=== PATIENT | male | born 1995 | race Caucasian/White ===

== ENCOUNTER 2018-05-22 11:08 | Emergency (ER) | payer OTHER, SELFPAY ==
[2018-05-22 11:17] VITALS: BP 132/81; PULSE 88; RESP 16; TEMP 36.6; O2SAT 99
--- NOTE | 2018-05-22 11:19 | W.ED.GENAD ---
Discharge Plan Disposition Patient Disposition: HOME Condition: Stable Discharge Details Chief Complaint: Laceration Clinical Impression: Laceration of right little finger Primary Care Provider: Nava Patel ED Provider: Salbador Chi Discharge Instructions Instructions: Finger Laceration (ED) Additional Instructions: Keep the wound clean and covered. If redness spreads down the hand or you have yellow/white discharge from the wound return to the emergency department Medical Decision Making 23 yo male comes in with right pinky laceration over lateral portion of the pinky. It is about 2cm in length and v shaped, occured while washing dishes yesterday. Has full rom of the finger and intact sensation so doubt tendon or nerve injury. Wound is superficial. Given lenght of time with injury do not feel closure with sutures indicated. Will up date tetatnus status and return precautions for infection given Differential Diagnosis lac, abrasion HPI General Mode of arrival: ambulatory. Date/Time Provider Initiated Documentation: 05/22/18 11:19. Limitations to Documentation: no limitations. Information obtained by: patient. History of Present Illness 23 year old M presents to the emergency department with the chief complaint of right pinky finger injury, described as mild, with intensity rated at 2. Quality is described as aching, and is localized to the right and upper extremity. Patient reports no radiation. Patient started experiencing this day(s) (1) and it has been constant. Rest improves symptom(s), Movement worsens symptoms . Patient notes no other symptoms.. Patient did receive the following treatments prior to arrival, none Related Data Allergies Allergy/AdvReac Type Severity Reaction Status Date / Time Penicillins Allergy Intermediate Hives Unverified 05/22/18 11:19 General Stated Complaint: Laceration KIA: 4 Review of Systems Review of Systems All systems reviewed & are unremarkable except as noted in HPI and below Constitutional Denies chills, Denies fever(s) and Denies weakness Cardiovascular Denies chest pain and Denies dyspnea Respiratory Denies dyspnea Gastrointestinal Denies abdominal pain, Denies nausea and Denies vomiting Genitourinary Denies dysuria Integumentary/Breasts Denies rash Neurologic Denies weakness Psychiatric Denies depression [facility] Medical History Acute appendicitis Nausea and vomiting Nonulcer dyspepsia Sleep apnea Surgical History Appendectomy (03/28/13) Social History Smoking/Tobacco Use Status: Current every day Exam Const General: no acute distress Orientation: alert HENMT Head: normal to inspection Ears: external ears normal General nose exam: external nose normal Mouth: moist mucous membranes Eyes General: appearance normal, both eyes and all related structures Neck Neck: normal visual inspection Resp Effort & Inspection: normal respiratory effort and able to speak in complete sentences Cardio Rate: regular rate Skin General skin exam: no rashes or lesions noted Neuro General: alert and oriented x3 Extrem General: full ROM and normal capillary refill Psych Mental Status: mental status grossly normal Course Vital Signs Temperature 36.6 C 05/22/18 11:17 Pulse 88 05/22/18 11:17 Respiratory Rate 16 05/22/18 11:17 Blood Pressure 132/81 05/22/18 11:17 Pulse Oximetry 99 05/22/18 11:17 Temperature 36.6 C 05/22/18 11:17 Temperature Source Skin 05/22/18 11:17 Pulse 88 05/22/18 11:17 Respiratory Rate 16 05/22/18 11:17 Blood Pressure 132/81 05/22/18 11:17 Pulse Oximetry 99 05/22/18 11:17 Oxygen Delivery Method Room Air 05/22/18 11:17 Oxygen Flow Rate 0 05/22/18 11:17 Pain Level 0 05/22/18 11:17
--- NOTE | 2018-05-22 11:25 | ED.GENADUL_ITS ---
Discharge Plan Disposition Patient Disposition: HOME Condition: Stable Discharge Details Chief Complaint: Laceration Clinical Impression: Laceration of right little finger Primary Care Provider: Nava Patel ED Provider: Salbador Chi Discharge Instructions Instructions: Finger Laceration (ED) Additional Instructions: Keep the wound clean and covered. If redness spreads down the hand or you have yellow/white discharge from the wound return to the emergency department Medical Decision Making 23 yo male comes in with right pinky laceration over lateral portion of the pinky. It is about 2cm in length and v shaped, occured while washing dishes yesterday. Has full rom of the finger and intact sensation so doubt tendon or nerve injury. Wound is superficial. Given lenght of time with injury do not feel closure with sutures indicated. Will up date tetatnus status and return precautions for infection given Differential Diagnosis lac, abrasion HPI General Mode of arrival: ambulatory . Date/Time Provider Initiated Documentation: 05/22/18 11:19 . Limitations to Documentation: no limitations . Information obtained by: patient . History of Present Illness 23 year old M presents to the emergency department with the chief complaint of right pinky finger injury, described as mild, with intensity rated at 2. Quality is described as aching, and is localized to the right and upper extremity. Patient reports no radiation. Patient started experiencing this day(s) (1) and it has been constant. Rest improves symptom(s), Movement worsens symptoms . Patient notes no other symptoms.. Patient did receive the following treatments prior to arrival, none Related Data Allergies Allergy/AdvReac Type Severity Reaction Status Date / Time Penicillins Allergy Intermediate Hives Unverified 05/22/18 11:19 General Stated Complaint: Laceration KIA: 4 Review of Systems Review of Systems All systems reviewed & are unremarkable except as noted in HPI and below Constitutional Denies chills, Denies fever(s) and Denies weakness Cardiovascular Denies chest pain and Denies dyspnea Respiratory Denies dyspnea Gastrointestinal Denies abdominal pain, Denies nausea and Denies vomiting Genitourinary Denies dysuria Integumentary/Breasts Denies rash Neurologic Denies weakness Psychiatric Denies depression [facility] Medical History Acute appendicitis Nausea and vomiting Nonulcer dyspepsia Sleep apnea Surgical History Appendectomy (03/28/13) Social History Smoking/Tobacco Use Status: Current every day Exam Const General: no acute distress Orientation: alert HENMT Head: normal to inspection Ears: external ears normal General nose exam: external nose normal Mouth: moist mucous membranes Eyes General: appearance normal, both eyes and all related structures Neck Neck: normal visual inspection Resp Effort & Inspection: normal respiratory effort and able to speak in complete sentences Cardio Rate: regular rate Skin General skin exam: no rashes or lesions noted Neuro General: alert and oriented x3 Extrem General: full ROM and normal capillary refill Psych Mental Status: mental status grossly normal Course Vital Signs Temperature 36.6 C 05/22/18 11:17 Pulse 88 05/22/18 11:17 Respiratory Rate 16 05/22/18 11:17 Blood Pressure 132/81 05/22/18 11:17 Pulse Oximetry 99 05/22/18 11:17 Temperature 36.6 C 05/22/18 11:17 Temperature Source Skin 05/22/18 11:17 Pulse 88 05/22/18 11:17 Respiratory Rate 16 05/22/18 11:17 Blood Pressure 132/81 05/22/18 11:17 Pulse Oximetry 99 05/22/18 11:17 Oxygen Delivery Method Room Air 05/22/18 11:17 Oxygen Flow Rate 0 05/22/18 11:17 Pain Level 0 05/22/18 11:17
== END 2018-05-22 11:52 | disposition home or self-care (01) ==
PROVIDERS: Emergency Provider Emergency Medicine; PCP Family Medicine
DX: S61.216A Laceration without foreign body of right little finger without damage to nail, initial encounter (principal); W25.XXXA Contact with sharp glass, initial encounter
CPT/HCPCS: 90471; 99282

== ENCOUNTER 2019-10-23 14:20 | Emergency (ER) | payer MEDICAID, SELFPAY ==
[2019-10-23 14:25] VITALS: BP 156/80; PULSE 79; RESP 15; TEMP 37.4; O2SAT 967
--- NOTE | 2019-10-23 14:35 | ED.GENADUL_ITS ---
Discharge Plan Disposition Patient Disposition: HOME Condition: Improving Discharge Details Chief Complaint: GenMedical Clinical Impression: Acute dehydration, Acute bronchitis Primary Care Provider: Wilbert Brown ED Provider: Jennifer Bragg Home Meds and New Rx's Prescriptions: New albuterol sulfate 2.5 mg /3 mL (0.083 %) solution for nebulization 2.5 mg IH Q4H PRN (Reason: shortness of breath or wheezing) Qty: 15 RF: 0 prednisone 20 mg tablet See Rx Instructions .ROUTE .COMPLEX Qty: 12 RF: 0 doxycycline hyclate 100 mg tablet 100 mg PO BID 7 Days Qty: 14 RF: 0 Discharge Instructions Instructions: Dehydration (ED), Acute Bronchitis (ED) Additional Instructions: Drink plenty of fluids and get plenty of rest. Take the steroids until finished. Use the albuterol inhaler and nebulizer as needed and directed. If you have no improvement of symptoms in the next 2 to 3 days, you can consider starting the antibiotics. Follow-up with your primary care doctor in 1 week. Return to the emergency department with any worsening or new concerning symptoms. 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 BP mildly hypertensive. Remainder vitals within normal limits. He appears flushed but nontoxic. He has rhonchi and wheezing throughout but with normal respiratory rate and oxygen saturation. Suspect most likely dehydration and likely acute bronchitis. IV, fluids and screening labs ordered on arrival. Will give a duoneb, PO steroids, and cxr and reassess. 1620 -- Labs reviewed and unremarkable. Troponin negative. Chest x-ray negative. pt reassessed -he is requesting to go home. States he feels much better. Lung exam reassessed and still with noted rhonchi, wheezing resolved. He declines any further neb treatment. We will send with a prescription for prednisone and albuterol solution as he has nebulizer machine at home. Also given prescription for antibiotics if symptoms do not improve or worsen as he is a smoker. Advised to follow up with the primary care doctor for re-evaluation. Usual and customary return precautions given prior to discharge. Medical Records Medical records reviewed: Yes I reviewed the patient's medical records. Imaging Data Radiologic Study: Radiologist's impression: XR PORTABLE CHEST AP CLINICAL HISTORY: cough, sob, r/o acute disease. TECHNIQUE: 2D digital imaging was performed. COMPARISON: CR LEFT SHOULDER COMPLETE from 03/30/2015 FINDINGS: LUNGS: Clear. No pleural abnormality seen. HEART: Normal. MEDIASTINUM: Normal. OTHER FINDINGS: None. IMPRESSION: No acute pulmonary findings. HPI General Mode of arrival: ambulatory . Date/Time Provider Initiated Documentation: 10/23/19 14:25 . Limitations to Documentation: no limitations . Information obtained by: patient . HPI Narrative: Patient is a 24-year-old male with a history of previous narcotic drug abuse on methadone who presents to the ED with complaint of feeling weak and dehydrated. Patient states he has been working on a hot roof for several hours throughout the day over the past 3 days. He states he has been trying to drink water but feels he is dehydrated. He also admits to a productive cough with yellow-green sputum and intermittent shortness of breath for the past 3 days. He denies any known fever, chest pain, abdominal pain, nausea, vomiting, diarrhea, urinary symptoms, headache or dizziness. Related Data Home Medications Medication Instructions Recorded Confirmed albuterol sulfate 2.5 mg IH Q4H PRN #15 ml 10/23/19 doxycycline hyclate 100 mg PO BID 7 Days #14 tab 10/23/19 prednisone See Rx Instructions .ROUTE 10/23/19 .COMPLEX #12 tab Previous Rx's Medication Instructions Recorded albuterol sulfate 2.5 mg IH Q4H PRN #15 ml 10/23/19 doxycycline hyclate 100 mg PO BID 7 Days #14 tab 10/23/19 prednisone See Rx Instructions .ROUTE 10/23/19 .COMPLEX #12 tab Allergies Allergy/AdvReac Type Severity Reaction Status Date / Time Penicillins Allergy Intermediate Hives Unverified 10/23/19 14:29 General Stated Complaint: GenMedical KIA: 3 Review of Systems All systems reviewed & are unremarkable except as noted in HPI and below Constitutional Constitutional: Reports as per HPI, Denies chills, Reports fatigue, Denies fever(s) and Reports weakness Eyes Eyes: Denies blurry vision ENT Ears, Nose, Mouth, and Throat: Denies dizziness, Denies sore throat and Denies throat swelling Cardiovascular Cardiovascular: Denies chest pain and Denies dyspnea Respiratory Respiratory: Reports cough and Denies dyspnea Gastrointestinal Gastrointestinal: Denies abdominal pain, Denies diarrhea and Denies vomiting Genitourinary Genitourinary: Denies hematuria and Denies dysuria Musculoskeletal Musculoskeletal: Denies back pain and Denies numbness Integumentary/Breasts Skin/Breast: Denies lesions and Denies rash Neurologic Neurologic: Denies dizziness, Denies localized weakness, Denies numbness and Reports weakness Endocrine Endocrine: Reports fatigue Allergic/Immunologic Allergic/Immunologic: Denies throat swelling PFSH Social History Smoking/Tobacco Use Status: Current every day Tobacco Type: cigarettes Alcohol Intake: never Drug use: Daily Substance use type: marijuana Exam Const General: cooperative, healthy appearing and no acute distress HENMT Head: normal to inspection Face and sinus: normal facial exam Eyes General: appearance normal, both eyes and all related structures EOM: EOM intact bilaterally Neck Neck: normal visual inspection and No submandibular swelling Lymphatic: no lymphadenopathy noted Chest Chest: normal inspection of the chest and no tenderness Resp Effort & Inspection: normal respiratory effort and able to speak in complete sentences Auscultation: rhonchi upper bilaterally and lower bilaterally and wheezes expiratory wheezes Cardio Rate: regular rate Rhythm: regular rhythm GI Inspection: normal to inspection Palpation: soft, not firm, not rigid and nontender Auscultation: normal bowel sounds Skin General skin exam: no rashes or lesions noted Neuro General: patient alert, patient awake and patient oriented x3 Cognition: normal cognition Speech: speech normal Motor: muscle tone normal throughout Sensory Exam: no sensory deficits noted Extrem General: normal to inspection, full ROM, capillary refill normal, no calf tenderness bilaterally and no edema Psych Appearance: grossly normal Mental Status: mental status grossly normal Speech and Movement: speech and movement normal Affect: normal affect Course Vital Signs Vital signs: Vital Signs Temperature 99.4 F 10/23/19 14:25 Pulse 79 10/23/19 14:25 Respiratory Rate 15 10/23/19 14:25 Blood Pressure 156/80 H 10/23/19 14:25 Pulse Oximetry 967 H 10/23/19 14:25 Temperature 99.4 F 10/23/19 14:25 Temperature Source Oral 10/23/19 14:25 Pulse 79 10/23/19 14:25 Respiratory Rate 15 10/23/19 14:25 Respiratory Effort Non-Labored 10/23/19 14:25 Blood Pressure 156/80 H 10/23/19 14:25 Blood Pressure Position Supine 10/23/19 14:25 Pulse Oximetry 967 H 10/23/19 14:25 Oxygen Delivery Method Room Air 10/23/19 14:25 Oxygen Flow Rate 0 10/23/19 14:25 Pain Level 5 10/23/19 14:25
[2019-10-23] MEDS: Normal Saline 1,000 ML 1000 ML IV (15:04)
[2019-10-23 15:17] LABS: Abs Immature Grans 0.03 k/cumm (0.0-0.09); Absolute Basophil Count 0.02 k/cumm (0.0-0.2); Absolute Eosinophil Count 0.36 k/cumm (0.0-0.7); Absolute Lymphocyte Count 1.35 k/cumm (1.2-3.4); Absolute Monocyte Count 1.46 k/cumm (0.11-0.7); Absolute Neutrophil Count 6.23 k/cumm (1.2-6.7); Basophils % 0.2; Eosinophils % 3.8; HCT 41.7 % (40.0-50.0); HGB 14.7 g/dL (13.5-17.5); Immature Grans % 0.3 %; Lymphocytes % 14.3; Mean Corp. HGB Concentration 35.3 g/dL (32.0-36.0); Mean Corpuscular Hemoglobin 30.6 pg (27.0-33.0); Mean Corpuscular Volume 86.9 fL (80-95); Mean Platelet Volume 11.5 fL (8.0-11.0); Monocytes % 15.4; Platelet Count 248 x1000/uL (130-400); RBC Distribution Width 12.7 % (11.8-14.1); White Blood Cell Count 9.45 k/cumm (4.4-10.8)
[2019-10-23 15:26] LABS: ALT 24 U/L (16-63); AST 26 U/L (15-37); Albumin 4.6 g/dL (3.4-5.0); Alkaline Phosphatase 91 U/L (46-116); Anion Gap 11.4 mmol/L (3-11); BUN 21 mg/dL (7-18); Bilirubin, Total 1.2 mg/dL (0.2-1.0); CO2 25.6 mmol/L (21.0-32.0); CREATININE 1.12 mg/dL (0.70-1.30); Calcium 9.4 mg/dL (8.5-10.1); Chloride 99 mmol/L (98-107); Glucose 88 mg/dL (74-106); Magnesium 1.7 mg/dL (1.8-2.4); Potassium 3.4 mmol/L (3.5-5.1); Sodium 136 mmol/L (136-145); Total Protein 8.3 g/dL (6.4-8.2)
[2019-10-23 15:29] LABS: Troponin I < 0.05 ng/mL (<0.06)
--- NOTE | 2019-10-23 15:30 | DI.RAD_ITS ---
EXAM: XR PORTABLE CHEST AP CLINICAL HISTORY: cough, sob, r/o acute disease. TECHNIQUE: 2D digital imaging was performed. COMPARISON: CR LEFT SHOULDER COMPLETE from 03/30/2015 FINDINGS: LUNGS: Clear. No pleural abnormality seen. HEART: Normal. MEDIASTINUM: Normal. OTHER FINDINGS: None. IMPRESSION: No acute pulmonary findings. DATA REPOSITORY: RADIATION DOSE DELIVERED:
[2019-10-23] MEDS: predniSONE 20 MG TAB 60 MG PO (15:44)
[2019-10-23 15:52] VITALS: RESP 4; RESP 7
[2019-10-23] MEDS: Albuterol/Ipratropium 3 ML UPD VIAL UPD (15:52)
[2019-10-23 16:04] VITALS: BP 137/79; PULSE 78; RESP 16; O2SAT 97
[2019-10-23] MEDS: Albuterol HFA 8 GM 60 PUFF INH IH (16:40)
[2019-10-23 16:41] VITALS: PULSE 97; RESP 18; O2SAT 98
== END 2019-10-23 16:40 | disposition home or self-care (01) ==
LOC: ER 16:37
PROVIDERS: Emergency Provider Physician Assistant; PCP Family Medicine
DX: E86.0 Dehydration (principal); J20.9 Acute bronchitis, unspecified; F17.210 Nicotine dependence, cigarettes, uncomplicated
CPT/HCPCS: 36415; 80053; 94640; 96360; 99284; 71045; 83735; 84484; 85025; J7512; J7620

== ENCOUNTER 2022-06-23 17:05 | Outpatient (REF) | payer MEDICAID, SELFPAY | END 2022-06-23 17:06 | disposition home or self-care (01) | LOC: LBN 17:05 | PROVIDERS: PCP Family Medicine; Visit Provider Nurse Practitioner Family | DX: L03.113 Cellulitis of right upper limb; S60.511A Abrasion of right hand, initial encounter; S61.031A Puncture wound without foreign body of right thumb without damage to nail, initial encounter | CPT/HCPCS: 87077; 87070; 87186; 87205 ==

== ENCOUNTER 2024-11-11 08:54 | Emergency (ER) | payer MEDICAID, SELFPAY ==
[2024-11-11 09:00] VITALS: BP 138/100; PULSE 77; RESP 16; O2SAT 97
[2024-11-11 09:07] VITALS: TEMP 37.2
--- NOTE | 2024-11-11 09:17 | W.ED.GENAD ---
Discharge Plan Disposition Patient Disposition: Home Condition: Stable Discharge Details Clinical Impression: Dental infection Primary Care Provider: Brandon Shah ED Provider: Amarilys Bustamante Home Meds and New Rx's Prescriptions: New amoxicillin-pot clavulanate 875-125 mg tablet 1 tab PO BID 9 Days Qty: 18 0RF No Action methadone 10 mg/mL concentrate 140 mg PO DAILY Patient Comments: Pt states he takes 140 mg daily 11/11/24 doxycycline hyclate 100 mg capsule 100 mg PO BID Qty: 14 0RF Rx Instructions: Avoid sun exposure. Take with meal. Take 1 pill every 12 hours x 7 days albuterol sulfate 2.5 mg /3 mL (0.083 %) solution for nebulization 2.5 mg IH Q4H PRN (Reason: shortness of breath or wheezing) Qty: 15 0RF prednisone 20 mg tablet See Rx Instructions .ROUTE .COMPLEX Qty: 12 0RF Rx Instructions: Take 3 tabs daily for 2 days, then 2 tabs daily for 2 days, then 1 tab daily for 2 days Discharge Instructions Instructions: Tooth Abscess (DC) Additional Instructions: You were seen in the emergency department today for evaluation of a dental infection with right cheek swelling. In our department you had a full physical examination performed and had reassuring vital signs. Given your exam and how quickly you presented to the emergency department I think we have a good chance of treating this effectively with oral antibiotics. I have started you on a medication called Augmentin, which you state you have tolerated before despite your childhood penicillin rash. Please take all this medication until it is gone, even if you start to feel better. You need to contact your dentist on Tuesday, to reestablish care and schedule a follow-up appointment, as you have numerous teeth that will require extraction to prevent further infections. Please use therapeutic dosing of Tylenol (acetaminophen) & Advil (ibuprofen) in an alternating fashion as follows: Take 1000mg of Tylenol every 6 hours without missing doses- that is 4 times per day. Alf in between the Tylenol doses, take 600mg of Advil also on a 6 hour schedule, that is also 4 times per day. With this strategy, you will be taking something for fever/pain as often as every 3 hours. The daily maximum dosing of Tylenol is 4000mg, and the daily maximum dosing of Advil is 2400mg. Please note that some common cold medications & prescription pain medications may contain acetaminophen and you need to read OTC drug labels and factor that in to maximum daily doses. Please return to the emergency department if you develop fever or chills that do not respond to medications, sudden change or worsening of your facial swelling, inability to open your mouth, swallow, or any other symptoms that cause you concern. Please follow-up with your primary care provider in the next few days to discuss this visit and any symptoms that change, worsen, or persist. Thank you for allowing us to be part of your care. HPI General Mode of arrival: ambulatory. Date/Time Provider Initiated Documentation: 11/11/24 08:55. Limitations to Documentation: no limitations. Information obtained by: patient and old records reviewed. HPI Narrative: This is a 29-year-old male patient with a past medical history significant for opioid use disorder on methadone maintenance therapy, history of mild intermittent asthma, presenting for evaluation of facial swelling and dental infection. The patient reports that yesterday he noted that his right cheek was feeling swollen, and this morning woke up with worsening of that swelling prompting him to seek care. He reports that he has not been to a dentist in many years, and has many known problem teeth with dental caries and erosions. He also states that he has a known fractured tooth on his right uppers and suspects that this is the tooth that is causing the most problems. He has not taken any [id number] medications for management of pain and states that he is fairly well-controlled. He has not taken any antibiotics recently. Reports that when his eye was very swollen he had difficulty seeing out, though with I fully open he reports only mild blurriness of his vision. He has no pain with movement of his eyes, is able to open his mouth, swallow, and has not had any difficulty maintaining his oral intake. Denies fevers or chills, reports a childhood allergy to penicillin but has tolerated amoxicillin and Augmentin since that time without incident. Related Data Home Medications ?Medication ?Instructions ?Recorded ?Confirmed albuterol sulfate 2.5 mg/3 mL 2.5 mg (3 mL) inhalation Q4H PRN 10/23/19 11/11/24 (0.083 %) solution for nebulization shortness of breath or wheezing #15 mL prednisone 20 mg tablet See Rx Instructions .Route 10/23/19 11/11/24 .COMPLEX #12 tabs doxycycline hyclate 100 mg capsule 100 mg PO BID #14 caps 06/23/22 11/11/24 methadone 10 mg/mL oral concentrate 140 mg PO DAILY 06/23/22 11/11/24 amoxicillin 875 mg-potassium 1 tab PO BID 9 days #18 tabs 11/11/24 clavulanate 125 mg tablet Previous Rx's ?Medication ?Instructions ?Recorded albuterol sulfate 2.5 mg/3 mL 2.5 mg (3 mL) inhalation Q4H PRN 10/23/19 (0.083 %) solution for nebulization shortness of breath or wheezing #15 mL prednisone 20 mg tablet See Rx Instructions .Route 10/23/19 .COMPLEX #12 tabs doxycycline hyclate 100 mg capsule 100 mg PO BID #14 caps 06/23/22 amoxicillin 875 mg-potassium 1 tab PO BID 9 days #18 tabs 11/11/24 clavulanate 125 mg tablet Allergies Allergy/AdvReac Type Severity Reaction Status Date / Time Penicillins Allergy Intermediate Hives Unverified 11/11/24 09:04 General Stated Complaint: DentalOral KIA: 3 Exam Narrative Exam Narrative: Gen: Awake and alert, in no apparent distress HEENT: Non-icteric sclera, PERRL, no conjunctival injection, EOMs are full and without nystagmus or entrapment. The patient has some redness and swelling of the right cheek up to the level of the inferior periorbital region. Mild tenderness to palpation of that area with no crepitus. The patient has extensive poor dentition with numerous dental caries, no periapical abscesses noted. Posterior pharynx without erythema, exudate, or swelling, floor of the mouth is soft, there is no trismus Neck: Supple, no significant cervical lymphadenopathy, full range of motion of the neck with both flexion and extension without limitation. Lungs: No apparent respiratory distress, normal respiratory effort. CV: Appears well perfused, strong distal pulses, regular rate and rhythm Abdomen: Non-distended MSK: Moves 4 extremities without apparent limitation in ROM Skin: Visualized skin without rashes, cyanosis. Neuro: Normal Gait, no obvious focal deficits or facial asymmetry. Speaks in full, clear sentences. Psych: Appropriate for situation. Course Vital Signs Vital signs: Vital Signs Pulse 77 11/11/24 09:00 Respiratory Rate 16 11/11/24 09:00 Blood Pressure 138/100 H 11/11/24 09:00 Pulse Oximetry 97 11/11/24 09:00 Temperature 37.2 C 11/11/24 09:07 Temperature Source Oral 11/11/24 09:07 Pulse 77 11/11/24 09:00 Respiratory Rate 16 11/11/24 09:00 Blood Pressure 138/100 H 11/11/24 09:00 Blood Pressure Position Sitting 11/11/24 09:00 Pulse Oximetry 97 11/11/24 09:00 Oxygen Delivery Method Room Air 11/11/24 09:00 Oxygen Flow Rate 0 11/11/24 09:00 Pain Level 7 11/11/24 09:00 Medical Decision Making This is a 29-year-old male patient presenting for evaluation of a presumed dental infection. My differential includes but is not limited to dental infection, dental carry disease, certainly considered extension of the infection into the face, considered sinusitis, periorbital edema and cellulitis. Reassuringly, the patient's exam is not concerning for any deep space infection such as Chiki's angina, peritonsillar abscess, retropharyngeal abscess. The patient is hemodynamically appropriate with no fever or tachycardia to increase my concern for systemic infection such as bacteremia or sepsis. He has no neurodeficits to increase my concern for cavernous sinus thrombosis. Given the brief duration of symptoms and the patient's hemodynamic stability I think it is reasonable to trial a course of oral antibiosis, and I am reassured to know that the patient has tolerated amoxicillin and Augmentin in the past without hives. His first dose of Augmentin was provided here and I provided him with a 10-day course. He has a dental office which he will call on Tuesday to schedule an appointment for assessment and likely extractions. He was provided with ibuprofen here for pain management, and counseled extensively on return precautions including worsening of his symptoms of infection, fever or chills, trismus, difficulty maintaining oral intake, etc. At this time, the patient has had a full medical evaluation and is safe for discharge to home. They are hemodynamically stable, ambulatory, and tolerating PO. They are understanding of the follow-up plan and return precautions. They left our facility without incident. Amarilys Bustamante MD [facility] All Active Problems (Updated 11/11/24 @ 09:18 by Amarilys Bustamante MD) Dental infection (Acute) Acute appendicitis (Acute 03/28/13) Status post laparoscopic appendectomy (Acute 03/28/13) Vomiting (Acute) Unclear etiology. Medical History (Updated 11/11/24 @ 09:18 by Amarilys Bustamante MD) Acute appendicitis Nausea and vomiting Nonulcer dyspepsia Sleep apnea Surgical History Appendectomy (03/28/13) LAPAROSCOPIC Social History Smoking/Tobacco Use Status: Current every day Tobacco Type: cigarettes Smoking risk assessment performed?: Yes Alcohol Intake: never Drug use: Daily Substance use type: marijuana and crack/cocaine Do you feel safe at home: Yes Do you feel safe in your relationship?: Yes
[2024-11-11 09:32] VITALS: BP 148/85; PULSE 63; O2SAT 98
[2024-11-11] MEDS: Ibuprofen 600 MG TAB PO (09:32)
[2024-11-11] MEDS: Amox. 875/Clav. 125, 2 TABS/BTL 1 TAB PO (09:32)
[2024-11-11] MEDS: Amoxicillin 875/Clav. 125 TAB PO (09:32)
[2024-11-11 09:35] VITALS: BP 148/85; PULSE 63; RESP 16; RESP 18; TEMP 37.2; O2SAT 98
== END 2024-11-11 09:35 | disposition home or self-care (01) ==
LOC: ER 10:33
PROVIDERS: Emergency Provider Emergency Medicine; PCP Student in an Organized Health Care Education/Training Program
DX: K04.7 Periapical abscess without sinus (principal); F11.20 Opioid dependence, uncomplicated; F17.210 Nicotine dependence, cigarettes, uncomplicated
CPT/HCPCS: 99283

== ENCOUNTER 2025-04-02 23:59 | Emergency (ER) | payer MEDICAID, SELFPAY ==
[2025-04-03 00:04] VITALS: BP 158/113; PULSE 85; RESP 18; TEMP 37.3; O2SAT 99
--- NOTE | 2025-04-03 00:29 | W.ED.GENAD ---
Discharge Plan Disposition Patient Disposition: Home Condition: Good Discharge Details Clinical Impression: Abscess, periapical, Pain, dental Primary Care Provider: Brandon Shah ED Provider: Ole Pate Home Meds and New Rx's Prescriptions: New clindamycin HCl 150 mg capsule 450 mg PO Q6H 7 Days Qty: 84 0RF No Action methadone 10 mg/mL concentrate 140 mg PO DAILY Patient Comments: Pt states he takes 140 mg daily 11/11/24 doxycycline hyclate 100 mg capsule 100 mg PO BID Qty: 14 0RF Rx Instructions: Avoid sun exposure. Take with meal. Take 1 pill every 12 hours x 7 days albuterol sulfate 2.5 mg /3 mL (0.083 %) solution for nebulization 2.5 mg IH Q4H PRN (Reason: shortness of breath or wheezing) Qty: 15 0RF prednisone 20 mg tablet See Rx Instructions .ROUTE .COMPLEX Qty: 12 0RF Rx Instructions: Take 3 tabs daily for 2 days, then 2 tabs daily for 2 days, then 1 tab daily for 2 days Discharge Instructions Instructions: Dental Pain Additional Instructions: The block we administered should help improve your pain. Please take 800 mg of ibuprofen every 6 hours and 1000 mg of Tylenol every 6 hours to help with the inflammation and pain. These are the maximum doses. Please take the antibiotic as directed to help with the infection in your tooth. Please use the dental list that we have provided to contact the dentist for prompt follow-up and evaluation for tooth removal. If you notice any worsening of your symptoms, or any new symptoms such as difficulty swallowing, difficulty breathing, vomiting, diarrhea, fever, chills, shortness of breath, chest pain, numbness, weakness, or fainting , please return immediately to the emergency department for reevaluation. Please follow up with your primary care provider as soon as possible for reassessment and reevaluation. As always, it was a pleasure participating in your medical care today. Stand Alone Forms: Portal Information Referrals: Brandon Shah [Primary Care Provider, Medicine] [facility] General Date/Time Provider Initiated Documentation: 04/03/25 00:14. HPI Narrative: This is a 30-year-old male with a past medical history of appendicitis and subsequent appendectomy, currently on methadone, who presents today for left lower dental pain. He has had multiple leaky teeth over the last few months, however starting at 6 PM tonight pain left lower dental area became notably worse, and he subsequently had significant swelling in the left lower oral area. At 6 PM we did check Tylenol and Motrin without any significant improvement. Swelling worsened throughout the night. He denies any difficulty swallowing or drinking but does admit to significant pain around that tooth and by the swelling. No other complaints at this time. He does not have a dentist, nor has he been able to establish care with one yet. Related Data Home Medications ?Medication ?Instructions ?Recorded ?Confirmed albuterol sulfate 2.5 mg/3 mL 2.5 mg (3 mL) inhalation Q4H PRN 10/23/19 04/03/25 (0.083 %) solution for nebulization shortness of breath or wheezing Held on 04/03/25. #15 mL Instructions: Pt Stopped/Never Started prednisone 20 mg tablet See Rx Instructions .Route 10/23/19 04/03/25 Held on 04/03/25. .COMPLEX #12 tabs Instructions: Prescription Finished doxycycline hyclate 100 mg capsule 100 mg PO BID #14 caps 06/23/22 04/03/25 Held on 04/03/25. Instructions: Pt Stopped/Never Started methadone 10 mg/mL oral concentrate 140 mg PO DAILY 06/23/22 04/03/25 clindamycin HCl 150 mg capsule 450 mg (3 x 150 mg) PO Q6H 7 days 04/03/25 #84 caps Previous Rx's ?Medication ?Instructions ?Recorded albuterol sulfate 2.5 mg/3 mL 2.5 mg (3 mL) inhalation Q4H PRN 10/23/19 (0.083 %) solution for nebulization shortness of breath or wheezing Held on 04/03/25. #15 mL Instructions: Pt Stopped/Never Started prednisone 20 mg tablet See Rx Instructions .Route 10/23/19 Held on 04/03/25. .COMPLEX #12 tabs Instructions: Prescription Finished doxycycline hyclate 100 mg capsule 100 mg PO BID #14 caps 06/23/22 Held on 04/03/25. Instructions: Pt Stopped/Never Started clindamycin HCl 150 mg capsule 450 mg (3 x 150 mg) PO Q6H 7 days 04/03/25 #84 caps Allergies Allergy/AdvReac Type Severity Reaction Status Date / Time Penicillins Allergy Intermediate Hives Unverified 11/11/24 09:04 General Stated Complaint: DentalOral KIA: 3 Exam Narrative Exam Narrative: 1.Const: Well-nourished, Well-developed, appearing stated age 2.Eyes: PERRL, no conjunctival injection, and symmetrical lids. 3.ENT: Atraumatic external nose and ears. Moist MM. Neck: Symmetric, trachea midline, No thyromegaly. Notable poor dentition throughout, notable swelling left lower jaw. No evidence of Chiki's angina. No signs of peritonsillar abscess. Moderate periapical abscess to the left lower teeth around what appears to be a residual canine. 4.CVS: +S1/S2, Peripheral pulses 2+ and equal in all extremities. Brisk capillary refill in all extremities. 5.RESP: Unlabored respiratory effort. Clear to auscultation bilaterally. No wheezes rales or rhonchi 6.GI: Soft, Nontender/Nondistended, No hepatosplenomegaly. No guarding or rebound. 7.MSK: Normocephalic/Atraumatic, Extremities w/o deformity or ttp No cyanosis or clubbing, Normal movement of all extremities 8.Skin: Warm, Dry. No rashes or lesions. 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 Sensation grossly intact, no focal neurologic deficits. 10.Psych: (AAO) x3. Appropriate mood and affect Course Vital Signs Vital signs: Vital Signs Temperature 37.3 C 04/03/25 00:04 Pulse 85 04/03/25 00:04 Respiratory Rate 18 04/03/25 00:04 Blood Pressure 158/113 H 04/03/25 00:04 Pulse Oximetry 99 04/03/25 00:04 Temperature 37.3 C 04/03/25 00:04 Temperature Source Temporal Artery Scan 04/03/25 00:04 Pulse 85 04/03/25 00:04 Respiratory Rate 18 04/03/25 00:04 Blood Pressure 158/113 H 04/03/25 00:04 Blood Pressure Position Sitting 04/03/25 00:04 Pulse Oximetry 99 04/03/25 00:04 Oxygen Delivery Method Room Air 04/03/25 00:04 Oxygen Flow Rate 0 04/03/25 00:04 Pain Level 9 04/03/25 00:09 Procedure Abscess Drainage Date of Procedure: 04/03/25 Time of Procedure: 00:57 Provider that performed the procedure: Ole R [place] Standard Time Out Performed: Yes Patient Consented: Verbally Location of Exam: Face Indication: Abscess. Local anesthetic: Bupivicaine 0.25%, Amount of Local Anesthetic Used(mL): 6. Sterility: Non Sterile. Procedure Prep: Hand hygiene and Surgical Mask. Technique used, needle aspiration. Amount of fluid expressed(mL): 1. Irrigation: No irrigation Outcome: Sucessful. Nerve Block 1st Nerve Block: Date of Procedure: 04/03/25 Time of procedure: 00:57 Provider that performed the procedure: Ole Ender [place] Indication: Local pain control Standard Time Out Performed: Yes Patient Consented: Verbally Local Anesthetic: Bupivicaine 0.25% Amount of anethetic used(mL): 6 Sterility: Non Sterile Laterality: Left Intraoral Nerve Block: inferior alveolar Ultrasound: Not used Paresthesia: Left Paresthesia Duration: Transient Procedure Tolerated: No Complications and Patient tolerated well Procedure Outcome: Successful Medical Decision Making This is a 30-year-old male with a past medical history of appendicitis and subsequent appendectomy, currently on methadone, who presents today for left lower dental pain. He has had multiple leaky teeth over the last few months, however starting at 6 PM tonight pain left lower dental area became notably worse, and he subsequently had significant swelling in the left lower oral area. At 6 PM we did check Tylenol and Motrin without any significant improvement. Swelling worsened throughout the night. He denies any difficulty swallowing or drinking but does admit to significant pain around that tooth and by the swelling. No other complaints at this time. He does not have a dentist, nor has he been able to establish care with one yet. Exam demonstrates well-appearing male with notable swelling of the left lower dental area around the left lower canine. Notable dental caries. Discussed risks and benefits of block, and the patient has consented for the block. Block was performed with notable improvement of symptomatology. After this we we will attempt I&D for potential periapical abscess drainage. Patient has a penicillin allergy, will start him on clindamycin. Will give him dental sheet. Block was performed, he tolerated procedure well, notable improvement of symptoms. Incision and drainage was attempted with 18-gauge needle, 1 cc of purulent fluid was removed, however patient did not want additional attempts. No signs of airway compromise, no evidence of life-threatening Ludewig's angina, or difficulty controlling secretions. Patient will be started on clindamycin, will be given NSAID therapy, dental shoe was given. Patient stable for discharge with close follow-up. Discussed red flags for which to return. I have extensively reviewed the treatment plan and discharge instructions with the patient. I have addressed all patient concerns at this time. The patient was made aware of what symptoms to monitor for that would warrant a return to the emergency department. Discussed the plan with the patient, they demonstrate verbal understanding and agreement with our assessment and plan at this time. The documentation in this chart was dictated using [employer] dictation software. Please excuse any dictation errors. Quality:SDOH Health Related Social Needs: Health related social needs food insecurity transpo insecurity material hardship house/econ circumstance daily activities lonely/isolated Health related social needs details pt reports issues w/ utilities/finances etc 'I need all the help I can get, I don't even know where to begin' PFSH All Active Problems (Updated 04/03/25 @ 00:35 by Ole Pate DO) Pain, dental (Acute) Abscess, periapical (Acute) Acute appendicitis (Acute 03/28/13) Status post laparoscopic appendectomy (Acute 03/28/13) Vomiting (Acute) Unclear etiology. Medical History (Updated 04/03/25 @ 00:35 by Ole Pate DO) Acute appendicitis Nausea and vomiting Nonulcer dyspepsia Sleep apnea Surgical History Appendectomy (03/28/13) LAPAROSCOPIC Social History Smoking/Tobacco Use Status: Current every day Tobacco Type: cigarettes Years smoked: 16 Smoking risk assessment performed?: Yes Alcohol Intake: never Drug use: Daily Substance use type: marijuana, crack/cocaine and opiates Details: fentanyl 'just for this pain' Housing: other Do you feel safe at home: Yes Do you feel safe in your relationship?: Yes POCUS Exam (ED) Limited Soft Tissue Exam PROVIDER THAT PERFORMED THE STUDY: Ole Pate
[2025-04-03] MEDS: Bupivacaine 0.5% Pres-Free 30 ML VIAL (00:34)
[2025-04-03] MEDS: Ibuprofen 800 MG TAB PO (01:04)
[2025-04-03] MEDS: Clindamycin 150 MG CAP, 12 CAPS/BTL 450 MG PO (01:05)
[2025-04-03] MEDS: Acetaminophen 500 MG TAB 1000 MG PO (01:05)
== END 2025-04-03 02:16 | disposition home or self-care (01) ==
PROVIDERS: Emergency Provider Student in an Organized Health Care Education/Training Program; PCP Student in an Organized Health Care Education/Training Program
DX: R68.84 Jaw pain (principal); K04.7 Periapical abscess without sinus; Z59.41 Food insecurity; Z59.87 Material hardship due to limited financial resources, not elsewhere classified; Z59.89 Other problems related to housing and economic circumstances; Z59.82 Transportation insecurity; Z60.8 Other problems related to social environment; Z73.9 Problem related to life management difficulty, unspecified
CPT/HCPCS: 41800; J0665